=== PATIENT | male | born 1925 | race African-American/Black ===

== ENCOUNTER 2017-02-08 11:44 | Emergency (ER) | payer MEDICARE ==
[~2017-02-08] VITALS: Ht 175.3 cm; Wt 80.0 kg
[~2017-02-08 11:44] MED LIST: ACET-2178 PO; AMLO5TAB4 PO; ASPI-785 PO; ASPI-867 PO; CELE200C PO; CLON0.1T PO; COR3 PO; COR6 PO; CRAN450T3 PO; DIPH25CA83 PO; DOCU-138 PO; FURO20TA4 PO; INSU100I7; IPRA3AMP9 INH; LISI-604 PO; MAG-55 PO; MEMA10TA11 PO; MEMA5TAB7 PO; METF500T3 PO; MULT-783 PO; NITR0.4T SL; ONDA4TAB5 PO; PRIM250T33 PO; SPIR25TA PO; TDUR2 PO; TRAM50TA73 PO; TUSSL PO
[2017-02-08] MEDS ORDERED: ACETAMINOPHEN 500MG TABLET PO ONE (13:15)
[2017-02-08 16:18] VITALS: BP 165/98
== END 2017-02-08 16:30 | disposition home or self-care (01) ==
LOC: ER 12:06
DX: M79.642 Pain in left hand (principal); M10.9 Gout, unspecified; I10 Essential (primary) hypertension; F03.90 Unspecified dementia, unspecified severity, without behavioral disturbance, psychotic disturbance, mood disturbance, and anxiety; E11.9 Type 2 diabetes mellitus without complications; Z79.4 Long term (current) use of insulin; Z79.82 Long term (current) use of aspirin
CPT/HCPCS: 73130; 99284

== ENCOUNTER 2017-10-01 23:36 | Emergency (ER) | payer MEDICAID, MEDICARE ==
[~2017-10-01] VITALS: Ht 180.3 cm; Wt 90.0 kg
[~2017-10-01 23:36] MED LIST changes: -ACET-2178 PO; -AMLO5TAB4 PO; -ASPI-785 PO; -ASPI-867 PO; -CELE200C PO; -CLON0.1T PO; -COR6 PO; -CRAN450T3 PO; -DIPH25CA83 PO; -DOCU-138 PO; -INSU100I7; -IPRA3AMP9 INH; -LISI-604 PO; -MAG-55 PO; -MEMA10TA11 PO; -METF500T3 PO; -MULT-783 PO; -NITR0.4T SL; -ONDA4TAB5 PO; -PRIM250T33 PO; -SPIR25TA PO; -TDUR2 PO; -TRAM50TA73 PO; -TUSSL PO
[2017-10-01 23:42] VITALS: BP 0/0
[2017-10-01] MEDS ORDERED: EPINEPHRINE 0.1MG/ML (1:10,000) 10ML SYR ONE (23:56)
== END 2017-10-01 23:56 | disposition expired ==
LOC: ER 23:36
DX: I46.9 Cardiac arrest, cause unspecified (principal); J44.9 Chronic obstructive pulmonary disease, unspecified; I10 Essential (primary) hypertension; F02.80 Dementia in other diseases classified elsewhere, unspecified severity, without behavioral disturbance, psychotic disturbance, mood disturbance, and anxiety; E78.00 Pure hypercholesterolemia, unspecified; E11.9 Type 2 diabetes mellitus without complications
CPT/HCPCS: 31500; 92950; 99285; J0171